=== PATIENT | female | born 2005 | race Caucasian/White ===

== ENCOUNTER 2024-02-05 20:29 | Emergency (ER) | payer OTHER ==
[2024-02-05] MEDS ORDERED: Sodium Chloride 0.9% 10 ML Syringe FLUSH PRN (20:45)
[2024-02-05] MEDS: Sodium Chloride 0.9% 1,000 ML IV ONE (20:59)
[2024-02-05] MEDS: diphenhydrAMINE 50 MG/ML SDV IVPUSH ONE (20:59)
[2024-02-05] MEDS: Ketorolac 30 MG/ML SDV IVPUSH ONE (20:59)
[2024-02-05] MEDS: Metoclopramide 10 MG/2 ML SDV IVPUSH ONE (20:59)
== END 2024-02-05 22:02 | disposition home or self-care (01) ==
LOC: JD.ED 20:29
DX: G43.909 Migraine, unspecified, not intractable, without status migrainosus (principal)
CPT/HCPCS: 96374; 96375; 99283; J1200; J1885; J2765; J7030